=== PATIENT | female | born 1975 | race Caucasian/White ===

== ENCOUNTER 2017-02-22 21:26 | Emergency (ER) | payer BC ==
[2017-02-22 23:27] VITALS: BP 111/79
== END 2017-02-22 23:27 | disposition home or self-care (01) ==
LOC: ED 21:26
DX: R20.2 Paresthesia of skin (principal); M79.601 Pain in right arm; T50.901A Poisoning by unspecified drugs, medicaments and biological substances, accidental (unintentional), initial encounter; Y92.89 Other specified places as the place of occurrence of the external cause
CPT/HCPCS: 82962; J1885